=== PATIENT | female | born 1985 | race Caucasian/White ===

== ENCOUNTER 2016-11-16 14:44 | Emergency (ER) | payer OTHER, MEDICAID ==
[2016-11-16 15:31] VITALS: BP 120/80; PULSE 106; RESP 18; TEMP 99.1; O2SAT 97
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
== END 2016-11-16 16:18 | disposition home or self-care (01) ==
DX: S40.212A Abrasion of left shoulder, initial encounter (principal); F17.200 Nicotine dependence, unspecified, uncomplicated; V73.6XXA Passenger on bus injured in collision with car, pick-up truck or van in traffic accident, initial encounter; Y92.410 Unspecified street and highway as the place of occurrence of the external cause